=== PATIENT | female | born 1975 | race American Indian/Alaskan Native ===

== ENCOUNTER 2021-02-25 08:21 | Day surgery (SDC) | payer OTHER ==
[~2021-02-25 08:21] MED LIST: SODIUM CHLORIDE 0.9% 1000 ML 1,000 ML IV SCH
[2021-02-25] MEDS ORDERED: LIDOCAINE MPF (2%) 20 MG/1 ML VIAL 5 ML ONE (09:08)
[2021-02-25] MEDS ORDERED: fentaNYL 100 MCG/2 ML INJ ONE (09:08)
[2021-02-25] MEDS ORDERED: propofoL 200 MG/20 ML VIAL IV ONE ×3 (09:09→09:32)
--- NOTE | 2021-02-25 09:12 | Anesthesia Day of Surgery ---
Anesthesia Day of Surgery - Day of Surgery Patient Examined: Yes Patient H&P Reviewed: Yes Patient is NPO: Yes
--- NOTE | 2021-02-25 09:13 | Anesthesia Consultation ---
Anesthesia Consult and Med Hx Date of service: 02/25/21 - Airway Anesthetic Teeth Evaluation: Caps ROM Head & Neck: Adequate Mental/Hyoid Distance: Adequate Mallampati Class: Class I Intubation Access Assessment: Good - Pre-Operative Health Status ASA Pre-Surgery Classification: ASA3 Proposed Anesthetic Plan: MAC - Pulmonary Hx Sleep Apnea: Yes (CPAP) - Cardiovascular System Hx Hypertension: Yes - Gastrointestinal Hx Gastroesophageal Reflux Disease: No (Had gastric bypass 2003) - Other Systems Hx Cancer: Yes (Breast) Hx Obesity: Yes
--- NOTE | 2021-02-25 09:46 | Short Stay Summary ---
Short Stay Documentation Date of service: 02/25/21 Narrative H&P: The patient presents for EGD to evaluate epigastric pain in the setting of a previous bypass surgery and for screening colonoscopy. No prior colon studies. - History Past Medical History: cancer (history of breast cancer), other (Morbid obesity) Past Surgical History: cholecystectomy, Social history: no significant social history, lives with family - Allergies and Medications Current Medications: Allergies morphine Allergy (Verified 07/22/13 15:42) Rash Home Medications Medication Instructions Recorded Confirmed Last Taken Type Amlodipine Besylate 10 mg PO DAILY 02/21/21 02/21/21 Unknown History Naprosyn 500 mg PO BID PRN 02/21/21 02/24/21 Unknown History Triamterene-Hctz 37.5-25 mg Cp PO DAILY 02/21/21 Unknown History Bc Pain Relief Powder Packet 02/24/21 Unknown History Active Medications Sodium Chloride (Nacl 0.9% 1000 Ml) 1,000 mls @ 50 mls/hr IV DIRECT BRAXTON - Physical exam General appearance: no acute distress, well-nourished, obese Integumentary: no rash, no growths, no abnormal pigmentation HEENT: Atraumatic, PERRLA, EOMI, Mucous membr. moist/pink Lungs: Clear to auscultation, Normal air movement Breasts: deferred Heart: Regular rate, Normal S1, Normal S2, No murmurs Gastrointestinal: normoactive bowel sounds, no tenderness, no distended, no masses, no guarding, no organomegaly, obese Female Genitourinary: deferred Rectal Exam: normal exam-external/orifice, normal rectal tone, no mass Extremities: no ischemia, pulses intact, pulses symmetrical, No edema, normal temperature, normal color, Full ROM Neurological: Normal gait, Normal speech, Strength at 5/5 X4 ext, Normal tone, Sensation intact, Cranial nerves 3-12 NL - Brief post op/procedure progress note Date of procedure: 02/25/21 Procedure: see dictation Estimated blood loss: none Pathology: list (Gastric biopsies for h.pylori) Specimen disposition: to lab Condition: stable - Disposition Condition at discharge: Good Disposition: DC-01 TO HOME OR SELFCARE - Discharge Diagnoses (1) Epigastric pain Status: Acute (2) Colon cancer screening Status: Acute Short Stay Discharge Plan Follow up with: MANDI LYLE MD [Primary Care Provider] - 7 Days
--- NOTE | 2021-02-25 09:51 | Operative Report ---
Operative Report Operative Report: Date of procedure: 02/25/2021 Procedure: Esophagogastroduodenoscopy with biopsies of the gastric pouch for H. pylori Preprocedure diagnosis: Epigastric pain, history of gastric bypass surgery Post procedure diagnosis: Gastric bypass anatomy, otherwise unremarkable study. Endoscopist: Dr. Delgado Anesthesia: Monitored anesthesia care per anesthesia department Medications: Propofol and fentanyl per anesthesia Estimated blood loss: 0 After careful discussion of the nature and purpose of the procedure as well as details the technique risks benefits and alternatives consent was obtained. The patient was placed in the left lateral decubitus position and medicated per anesthesia. The tip of the [employer] EQ 570 video scope was passed per orum under direct vision into the esophagus and advanced into the stomach. Gastric bypass anatomy was present. The scope was passed through the gastrojejunal anastomosis for a distance of approximately 20 cm. The jejunum was normal in its appearance. The surgical junction was widely patent and not inflamed. Three biopsies were taken within the stomach pouch to assess for possible H. pylori infection. The scope was then withdrawn in the forward position. The esophagogastric junction was at 40 cm. The esophageal body was normal throughout. The procedure was was well tolerated and the patient was observed in recovery. Impressions: Gastric bypass anatomy. No ulcers or other abnormalities are seen. Plan: Await results of biopsies for H. pylori. Avoidance of NSAIDs. Electronically signed: Dominick Delgado MD
--- NOTE | 2021-02-25 09:52 | Operative Report ---
Operative Report Operative Report: Date of procedure: 02/25/2021 Preprocedure diagnosis: Colon cancer screening. No prior studies. Personal hi story of breast cancer. Post procedure diagnosis: Normal study. Procedure: Colonoscopy to the cecum Endoscopist: Dr. Delgado Anesthesia: Monitored anesthesia care per anesthesia department Estimated blood loss: 0 Medications: Monitored anesthesia care. See separate report by anesthesia for details. After careful discussion of the nature and purpose of the procedure as well as details of the technique risks benefits and alternatives the patient gave consent. Please see recent history and physical from the office. The patient was placed in the left lateral decubitus position and medicated per anesthesia. A rectal exam was performed sphincter tone was normal there were no masses palpable. The [employer] 570 scope was passed transanally and advanced under continuous direct vision without difficulty to the cecum. The colon was well prepared. The cecum was normal. The ascending colon was normal and on forward and retroflexed views. The transverse colon, descending colon, and sigmoid colon were normal. The rectum was normal on forward and retroflexed views. The procedure was well-tolerated overall and the patient was observed in recovery. Conclusions: Normal colonoscopy to the cecum. Plan: Repeat colonoscopy in 5 years due to personal history of breast cancer. Signed electronically: Dominick Delgado M.D.
[2021-02-25 10:56] VITALS: BP 143/71
--- NOTE | 2021-02-25 15:44 | Post Anesthesia Evaluation ---
- Post Anesthesia Evaluation Patient Participated: Yes Airway Patent: Yes Stable Respiratory Function: Yes Nausea/Vomiting: No Temp > 96.8F: Yes Pain Manageable: Yes Adequeate Hydration: Yes Anesthesia Complications: No Block Receding Appropriately: Not Applicable Patient on Ventilator: No
== END 2021-02-25 08:22 | disposition home or self-care (01) ==
LOC: GIO 08:21
PROVIDERS: ATTEND Internal Medicine Gastroenterology
DX: Z12.11 Encounter for screening for malignant neoplasm of colon (principal); R10.13 Epigastric pain; K31.89 Other diseases of stomach and duodenum; K29.70 Gastritis, unspecified, without bleeding; I10 Essential (primary) hypertension; G47.30 Sleep apnea, unspecified; E66.9 Obesity, unspecified; Z85.3 Personal history of malignant neoplasm of breast; Z79.899 Other long term (current) drug therapy; Z98.890 Other specified postprocedural states; Z88.6 Allergy status to analgesic agent
CPT/HCPCS: 43239; 45378; 88305; 88342; J2704; J3010; J7030